=== PATIENT | female | born 1980 | race Caucasian/White ===

== ENCOUNTER 2017-04-01 17:24 | Emergency (ER) | END 2017-04-01 17:43 | disposition left against medical advice (07) | LOC: C.EDB 17:29 | DX: Z00.8 Encounter for other general examination (principal) ==

== ENCOUNTER 2018-05-14 15:52 | Emergency (ER) | payer OTHER ==
[~2018-05-14] VITALS: Ht 165.1 cm; Wt 54.6 kg
[2018-05-14 15:56] VITALS: Ht 165.1 cm; Wt 54.6 kg
[2018-05-14] MEDS ORDERED: SODIUM CHLORIDE 0.9% 1000ML 1,000 ML IV STA ×2 (16:18→17:30)
--- NOTE | 2018-05-14 16:21 | EMERGENCY ROOM VISIT NOTE ---
History Report prepared by Claritza: Jaya Mendez Under the Supervision of: Dr. Onelia Hernandez D.O. First contact with patient: 16:01 Chief Complaint: OTHER COMPLAINT Stated Complaint: MENTAL HEALTH EVAL History of Present Illness The patient is a 37 year old female who presents to the Emergency Room with complaints of constant alcohol withdrawal symptoms beginning two days ago. The patient states that she has been drinking alcohol since she was [age] and she notes that she typically drinks alcohol "as she parties." She reports that she has been through withdrawal before but she states that she has not had to be admitted in the past. She notes that she does not have a history of withdrawal related seizures. She reports that she last had alcohol 40 hours ago. The patient states that she has been taking Klonopin, Xanax, and Suboxone to try to help her alcohol withdrawal. He notes that these medications are not prescribed, and she reports that she has been buying them off the street. The patient states that she has been snorting the pills. She notes that she has also been taking her prescribed high dosage of gabapentin for mood disorder and bipolar. She complains of shakiness, a headache, sensitivity to light, nausea, diarrhea, constant abdominal pain, and feeling thirsty. She denies any vomiting , blood in her diarrhea, and recent falls. She reports that she typically does not get headaches when she goes through withdrawal. The patient states that she has been trying to get into an inpatient rehab for the last two days. She notes that she was in rehab three years ago. Per foot worker, the patient has been under a large amount of stress recently as her is in long term. Source of History: patient, other (foot worker) Onset: two days ago Position: other (generalized) Quality: other (alcohol withdrawal symptoms) Timing: constant Associated Symptoms: + headache, + nausea, + abdominal pain, + diarrhea, No vomiting Note: The patient complains of shakiness, sensitivity to light, and feeling thirsty. She denies having any blood in her diarrhea. Review of Systems See HPI for pertinent positives & negatives. A total of 10 systems reviewed and were otherwise negative. Past Medical & Surgical Medical Problems: (1) Bipolar disorder (2) Mood disorder Family History No pertinent family history stated. Social History Smoking Status: Current Every Day Smoker Alcohol Use: heavy Marital Status: single Occupation Status: unemployed Current/Historical Medications Scheduled Cephalexin (Keflex), 1 CAP PO BID Chlordiazepoxide (Librium), 50-100 MG PO Q8 Gabapentin (Neurontin), 1,200 MG PO TID Topiramate (Topamax), 200 MG PO BID Allergies Coded Allergies: Lamotrigine (Unverified Allergy, Severe, Anaphylaxis, 05/14/18) Atomoxetine (Unverified Allergy, Intermediate, Hives, 05/14/18) Haloperidol (Unverified Adverse Reaction, Severe, Lock Jaw, 05/14/18) Sulfa Antibiotics (Unverified Adverse Reaction, Intermediate, Thrush, 05/14) Physical Exam Vital Signs Date Time Temp Pulse Resp B/P (MAP) Pulse Ox O2 Delivery O2 Flow Rate FiO2 05/14/18 21:49 36.6 65 16 129/98 95 Room Air 05/14/18 21:08 67 16 124/96 95 Room Air 05/14/18 19:43 90 12 138/115 100 Room Air 05/14/18 17:53 68 05/14/18 17:49 74 12 125/92 91 Room Air 05/14/18 15:56 36.4 102 18 115/89 95 Room Air Physical Exam GENERAL: alert, agitated appearing, well nourished, no distress EYE EXAM: normal conjunctiva, PERRL and EOM's grossly intact OROPHARYNX: no exudate, no erythema, lips, buccal mucosa, and tongue normal and mucous membranes are dry, poor dentition. NECK: supple, no nuchal rigidity, no adenopathy, non-tender LUNGS: Clear to auscultation. Normal chest wall mechanics HEART: no murmurs, S1 normal and S2 normal ABDOMEN: abdomen soft, non-tender, normo-active bowel sounds, no masses, no rebound or guarding. BACK: Back is symmetrical on inspection and there is no deformity, no midline tenderness, no CVA tenderness. SKIN: no rashes and no bruising UPPER EXTREMITIES: upper extremities are grossly normal. LOWER EXTREMITIES: No pitting edema. NEURO EXAM: Normal sensorium, cranial nerves II-XII grossly intact, normal speech, no gross weakness of arms, no gross weakness of legs. Medical Decision & Procedures ER Provider Diagnostic Interpretation: Radiology results have been interpreted by the radiologist and reviewed by me. HEAD CT NONCONTRAST Findings: The paranasal sinuses and mastoid air cells are clear. The calvarium and skull base are intact. The ventricles and sulci are within normal limits. There is no mass, hematoma, midline shift, or acute infarct. Impression: No acute intracranial abnormality. Electronically signed by: Ezio Garcia M.D. 05/14/2018 5:54 PM Dictated Date/Time: 05/14/2018 5:46 PM CHEST AND ABDOMEN 2 VIEWS FINDINGS: No pneumothorax. No pleural effusions. The heart is normal in size. The lungs are clear. Old, healed left-sided rib fractures. There is a 1.2 cm triangular-shaped metallic foreign body within the left neck. There are punctate bilateral renal calculi. The bowel gas pattern is unremarkable. No dilated small bowel to suggest an obstruction. No pneumoperitoneum. No pneumatosis. Multiple pelvic phlebolith are noted. IMPRESSION: 1. No acute process within the chest. 2. No evidence for bowel obstruction. 3. Bilateral nephrolithiasis. No ureteral calculi. 4. A 1.2 cm triangular-shaped metallic foreign body within the left neck. Electronically signed by: Ezio Garcia M.D. 05/14/2018 7:41 PM Dictated Date/Time: 05/14/2018 7:38 PM Laboratory Results 05/14/18 16:42 Red Blood Count 4.01, Mean Corpuscular Volume 94.5, Mean Corpuscular Hemoglobin 31.9, Mean Corpuscular Hemoglobin Concent 33.8, Mean Platelet Volume 10.7, Neutrophils (%) (Auto) 37.7, Lymphocytes (%) (Auto) 53.7, Monocytes (%) (Auto) 6.6, Eosinophils (%) (Auto) 1.4, Basophils (%) (Auto) 0.6, Neutrophils # (Auto) 1.31, Lymphocytes # (Auto) 1.87, Monocytes # (Auto) 0.23, Eosinophils # (Auto) 0.05, Basophils # (Auto) 0.02 05/14/18 16:42 Test 05/14/18 16:42 05/14/18 19:14 White Blood Count 3.48 K/uL (4.8-10.8) Red Blood Count 4.01 M/uL (4.2-5.4) Hemoglobin 12.8 g/dL (12.0-16.0) Hematocrit 37.9 % (37-47) Mean Corpuscular Volume 94.5 fL (80-100) Mean Corpuscular Hemoglobin 31.9 pg (25-34) Mean Corpuscular Hemoglobin Concent 33.8 g/dl (32-36) Platelet Count 106 K/uL (130-400) Mean Platelet Volume 10.7 fL (7.4-10.4) Neutrophils (%) (Auto) 37.7 % Lymphocytes (%) (Auto) 53.7 % Monocytes (%) (Auto) 6.6 % Eosinophils (%) (Auto) 1.4 % Basophils (%) (Auto) 0.6 % Neutrophils # (Auto) 1.31 K/uL (1.4-6.5) Lymphocytes # (Auto) 1.87 K/uL (1.2-3.4) Monocytes # (Auto) 0.23 K/uL (0.11-0.59) Eosinophils # (Auto) 0.05 K/uL (0-0.5) Basophils # (Auto) 0.02 K/uL (0-0.2) RDW Standard Deviation 56.7 fL (36.4-46.3) RDW Coefficient of Variation 16.5 % (11.5-14.5) Immature Granulocyte % (Auto) 0.0 % Immature Granulocyte # (Auto) 0.00 K/uL (0.00-0.02) Prothrombin Time 12.4 SECONDS (9.0-12.0) Prothromb Time International Ratio 1.2 (0.9-1.1) Anion Gap 8.0 mmol/L (3-11) Est Creatinine Clear Calc Drug Dose 100.1 ml/min Estimated GFR () 131.1 Estimated GFR (Non- 113.1 BUN/Creatinine Ratio 47.5 (10-20) Calcium Level 8.0 mg/dl (8.5-10.1) Magnesium Level 1.6 mg/dl (1.8-2.4) Total Bilirubin 0.5 mg/dl (0.2-1) Aspartate Amino Transf (AST/SGOT) 174 U/L (15-37) Alanine Aminotransferase (ALT/SGPT) 80 U/L (12-78) Alkaline Phosphatase 76 U/L (45-117) Troponin I < 0.015 ng/ml (0-0.045) Total Protein 7.3 gm/dl (6.4-8.2) Albumin 3.5 gm/dl (3.4-5.0) Globulin 3.8 gm/dl (2.5-4.0) Albumin/Globulin Ratio 0.9 (0.9-2) Lipase 77 U/L (73-393) Thyroid Stimulating Hormone (TSH) 2.710 uIu/ml (0.300-4.500) Human Chorionic Gonadotropin, Qual NEG (NEG) Ethyl Alcohol mg/dL 11.9 mg/dl (0-3) Urine Color YELLOW Urine Appearance CLEAR (CLEAR) Urine pH 5.0 (4.5-7.5) Urine Specific [place] 1.022 (1.000-1.030) Urine Protein NEG (NEG) Urine Glucose (UA) NEG (NEG) Urine Ketones NEG (NEG) Urine Occult Blood 1+ (NEG) Urine Nitrite POS (NEG) Urine Bilirubin NEG (NEG) Urine Urobilinogen NEG (NEG) Urine Leukocyte Esterase TRACE (NEG) Urine WBC (Auto) 10-30 /hpf (0-5) Urine RBC (Auto) 0-4 /hpf (0-4) Urine Hyaline Casts (Auto) 1-5 /lpf (0-5) Urine Epithelial Cells (Auto) 10-20 /lpf (0-5) Urine Bacteria (Auto) 3+ (NEG) Urine Opiates Screen NEG (NEG) Urine Methadone, Qualitative NEG (NEG) Urine Barbiturates NEG (NEG) Urine Phencyclidine (PCP) Level NEG (NEG) Ur Amphetamine/Methamphetamine NEG (NEG) MDMA (Ecstasy) Screen NEG (NEG) Urine Benzodiazepines Screen POS (NEG) Urine Cocaine Metabolite NEG (NEG) Urine Marijuana (THC) NEG (NEG) Laboratory results per my review. Medications Administered Medications (Trade) Dose Ordered Sig/Samuel Route Start Time Stop Time Status Last Admin Dose Admin Sodium Chloride 1,000 ml @ 999 mls/hr Q1H1M STAT IV 05/14/18 16:18 05/14/18 17:18 DC 05/14/18 16:18 999 MLS/HR Sodium Chloride 1,000 ml @ 999 mls/hr Q1H1M STAT IV 05/14/18 17:30 05/14/18 18:30 DC 05/14/18 17:49 999 MLS/HR Magnesium Sulfate (Magnesium Sulfate 1gm / D5W) 2 gm NOW STAT IV 05/14/18 17:47 05/14/18 17:48 DC 05/14/18 16:40 2 GM Folic Acid (Folvite Tab) 1 mg NOW STAT PO 05/14/18 17:47 05/14/18 17:48 DC 05/14/18 17:47 1 MG Thiamine HCl (Vitamin B-1 Tab) 100 mg NOW STAT PO 05/14/18 17:47 05/14/18 17:48 DC 05/14/18 18:53 100 MG Chlordiazepoxide (Librium Cap) 100 mg NOW ONCE PO 05/14/18 19:45 05/14/18 19:46 DC 05/14/18 19:38 100 MG Diphenhydramine HCl (Benadryl Inj) 50 mg NOW STAT IV 05/14/18 19:31 05/14/18 19:32 DC 05/14/18 19:38 50 MG Cephalexin Monohydrate (Keflex Cap) 500 mg NOW ONCE PO 05/14/18 21:45 05/14/18 21:46 DC 05/14/18 21:40 500 MG Cephalexin Monohydrate (Keflex 500MG Home Pack) 1 homepack NOW ONCE PO 05/14/18 21:45 05/14/18 21:46 DC 05/14/18 21:40 1 HOMEPACK ECG Per My Interpretation Indication: toxicologic Rate (beats per minute): 76 Rhythm: sinus rhythm Findings: no acute ischemic change, no ectopy, other (Normal axis, normal intervals) ED Course 1608: The patient was evaluated in room A10. A complete history and physical exam was performed. 1618: Sodium Chloride 1000 ml @ 999 mls/hr IV 1730: Sodium Chloride 1000 ml @ 999 mls/hr IV 1747: Thiamine HCl 100mg PO, Folic Acid 1mg PO, Magnesium Sulfate 2gm IV 193: I reevaluated and updated the patient. 1930: Benadryl Inj 50mg IV 1944: Librium Cap 100mg PO Medical Decision Differential diagnosis: Etiologies such as toxicologic, infection, hypoglycemia, electrolyte abnormalities, cardiac sources, intracerebral event, neurologic, as well as others were entertained. Patient with alcohol withdrawal but she was trying to medicate by buying benzodiazepines off the street. Patient attempting to be placed in rehab. Case management involved from the onset to try and assist with this. Patient unable be placed tonight directly from the ER. Patient here hemodynamically stable. Patient was dehydrated and was given 2 L of IV fluid. Had no recurrent vomiting. No evidence of worsening alcohol withdrawal or DTs. No prior history of DTs or alcohol-related seizure. Patient started on Librium, electrolyte repleted, vitamins given, and patient with specific instructions per case management on going to rehab in [facility] tomorrow. Discussed with her symptoms to watch and return for, she verbalized understanding was agreeable with plan. I do not suspect other infectious or metabolic etiology. I do not suspect additional intracranial pathology leading to tremors. Medication Reconcilliation Current Medication List: was personally reviewed by me Blood Pressure Screening Patient's blood pressure: Normal blood pressure Impression Primary Impression: Substance abuse Additional Impressions: Alcohol abuse UTI (urinary tract infection) Dehydration Hypomagnesemia Anxiety Scribe Attestation The scribe's documentation has been prepared under my direction and personally reviewed by me in its entirety. I confirm that the note above accurately reflects all work, treatment, procedures, and medical decision making performed by me. Departure Information Dispostion Home / Self-Care Prescriptions Cephalexin (KEFLEX) 500 Mg Cap 1 CAP PO BID for 7 Days, #14 CAP Prov: Onelia Hernandez, DO 05/14/18 Chlordiazepoxide (Librium) 25 Mg Cap 50-100 MG PO Q8 for Agitation, #30 CAP Do not take more than 300 mg/day. Slowly taper your usage over the course of the next 3 days. Prov: Onelia Hernandez, 05/14/18 Patient Instructions My [facility] Additional Instructions Please follow-up with the rehab facility as the case picker discussed with you. He may use the medication to help with her withdrawal symptoms as prescribed. Please do not self treat with additional medications. Please take the antibiotic as prescribed to treat your infection. Please drink plenty of water to stay well-hydrated. You may use the nausea medication as needed. If you have any new or concerning symptoms, feeling withdrawal symptoms are getting worse, or of any other concerns please return the emergency room. Problem Qualifiers Additional Impressions: UTI (urinary tract infection) Urinary tract infection type: acute cystitis Hematuria presence: with hematuria Qualified Codes: N30.01 - Acute cystitis with hematuria
[2018-05-14 17:00] LABS: HEMATOCRIT 37.9 % (37-47); HEMOGLOBIN 12.8 g/dL (12.0-16.0); MEAN CELL VOLUME 94.5 fL (80-100); MEAN CORPUSCULAR HEMOGLOBIN 31.9 pg (25-34); MEAN CORPUSCULAR HGB CONC 33.8 g/dl (32-36); MEAN PLATELET VOLUME 10.7 fL (7.4-10.4); PLATELET COUNT 106 K/uL (130-400); RED CELL DISTRIBUTION WIDTH CV 16.5 % (11.5-14.5); RED CELL DISTRIBUTION WIDTH SD 56.7 fL (36.4-46.3); WHITE BLOOD COUNT 3.48 K/uL (4.8-10.8)
[2018-05-14 17:12] LABS: INR 1.2 (0.9-1.1)
[2018-05-14 17:40] LABS: ALBUMIN 3.5 gm/dl (3.4-5.0); ALKALINE PHOSPHATASE 76 U/L (45-117); ALT/SGPT 80 U/L (12-78); AST/SGOT 174 U/L (15-37); BLOOD UREA NITROGEN 32 mg/dl (7-18); CARBON DIOXIDE 24 mmol/L (21-32); CREATININE 0.67 mg/dl (0.60-1.20); GLUCOSE 87 mg/dl (70-99); LIPASE 77 U/L (73-393); POTASSIUM 3.7 mmol/L (3.5-5.1); SODIUM 136 mmol/L (136-145); TOTAL PROTEIN 7.3 gm/dl (6.4-8.2)
[2018-05-14] MEDS ORDERED: MAGNESIUM SULFATE 1GM / D5W 1 GM BAG IV STA (17:47)
[2018-05-14 17:54] LABS: BASO % 0.6 %; BASO ABS # 0.02 K/uL (0-0.2); EOS % 1.4 %; EOS ABS # 0.05 K/uL (0-0.5); LYMPH % 53.7 %; LYMPH ABS # 1.87 K/uL (1.2-3.4); MONO % 6.6 %; MONO ABS # 0.23 K/uL (0.11-0.59); NEUT % 37.7 %; NEUT ABS # 1.31 K/uL (1.4-6.5)
--- NOTE | 2018-05-14 17:55 | DIAGNOSTIC IMAGING REPORT ---
HEAD CT NONCONTRAST CT DOSE: 537.48 mGy.cm HISTORY: headache TECHNIQUE: Multiaxial CT images of the head were performed without the use of intravenous contrast. Automated exposure control was utilized for this study. A dose lowering technique was utilized adhering to the principles of ALARA. Comparison: None. Findings: The paranasal sinuses and mastoid air cells are clear. The calvarium and skull base are intact. The ventricles and sulci are within normal limits. There is no mass, hematoma, midline shift, or acute infarct. Impression: No acute intracranial abnormality. Electronically signed by: Ezio Garcia M.D. 05/14/2018 5:54 PM Dictated Date/Time: 05/14/2018 5:46 PM
[2018-05-14] MEDS: THIAMINE HCL 100 MG TAB PO STA ×2 (18:06→18:53)
[2018-05-14] MEDS ORDERED: TOPI200T14 PO (18:24)
[2018-05-14] MEDS ORDERED: GABA600T PO (18:24)
[2018-05-14] MEDS ORDERED: DiphenhydrAMINE HCL 50 MG/ML VIAL IV STA (19:31)
--- NOTE | 2018-05-14 19:42 | DIAGNOSTIC IMAGING REPORT ---
CHEST AND ABDOMEN 2 VIEWS HISTORY: nausea, diarrhea, generalized abdominal pain COMPARISON: None. FINDINGS: No pneumothorax. No pleural effusions. The heart is normal in size. The lungs are clear. Old, healed left-sided rib fractures. There is a 1.2 cm triangular-shaped metallic foreign body within the left neck. There are punctate bilateral renal calculi. The bowel gas pattern is unremarkable. No dilated small bowel to suggest an obstruction. No pneumoperitoneum. No pneumatosis. Multiple pelvic phlebolith are noted. IMPRESSION: 1. No acute process within the chest. 2. No evidence for bowel obstruction. 3. Bilateral nephrolithiasis. No ureteral calculi. 4. A 1.2 cm triangular-shaped metallic foreign body within the left neck. Electronically signed by: Ezio Garcia M.D. 05/14/2018 7:41 PM Dictated Date/Time: 05/14/2018 7:38 PM
[2018-05-14] MEDS ORDERED: CHLORDIAZEPOXIDE 25 MG CAP PO ONE (19:45)
[2018-05-14] MEDS ORDERED: CEPH-571 PO (21:42)
[2018-05-14] MEDS ORDERED: CHLO25CA10 PO (21:42)
[2018-05-14] MEDS ORDERED: CEPHALEXIN 500MG HOME PACK 1 EA BTL PO ONE (21:45)
[2018-05-14] MEDS ORDERED: CEPHALEXIN MONOHYDRATE 250 MG CAP PO ONE (21:45)
[2018-05-14 21:49] VITALS: BP 129/98; PULSE 65; TEMP 36.6; O2SAT 95
--- NOTE | 2018-05-16 17:50 | Pharmacy Progress Note ---
ED Pharmacist Culture FollowUp Date of Service: May 16, 2018. Patient was sent home with a prescription for keflex 500mg BID X 7 days, which should cover the E. coli growing from the patient's urine culture.
== END 2018-05-14 21:51 | disposition home or self-care (01) ==
LOC: C.EDB 15:54 → C.EDA 21:51
DX: F19.10 Other psychoactive substance abuse, uncomplicated (principal); F10.239 Alcohol dependence with withdrawal, unspecified; N30.01 Acute cystitis with hematuria; E86.0 Dehydration; E83.42 Hypomagnesemia; F41.9 Anxiety disorder, unspecified; F31.9 Bipolar disorder, unspecified; F39 Unspecified mood [affective] disorder; F17.210 Nicotine dependence, cigarettes, uncomplicated; Z79.899 Other long term (current) drug therapy; Z88.2 Allergy status to sulfonamides; Z88.8 Allergy status to other drugs, medicaments and biological substances